=== PATIENT | female | born 1985 | race Caucasian/White ===

== ENCOUNTER 2017-04-26 10:22 | Outpatient (CLI) | payer OTHER ==
--- NOTE | 2017-04-26 13:01 | ULT ---
PELVIC OB ULTRASOUND: COMPARISON: None. HISTORY: female. Unsure of dates of last menstrual period. TECHNIQUE: Multiplanar, purvis scale, and color Doppler images were obtained in a transabdominal and transvaginal pelvic ultrasound. Spectral analysis of the Doppler waveforms of the ovaries were performed. FINDINGS: There is a single live intrauterine with heart rate of 155 b.p.m. There is a normal-appea ring yolk sac and a pole within the gestational sac. [place]-rump length of the pole is 2 .32 cm which estimated gestational age at 9 weeks 0 days. No free fluid is seen in the pelvis. Both ovaries are normal in size and appearance and demonstrate normal internal flow. IMPRESSION: Single live intrauterine with estimated age of 9 weeks 0 days. POS: JACY
== END 2017-04-26 10:23 | disposition home or self-care (01) ==
LOC: ULT 10:22
PROVIDERS: ATTEND Family Medicine
DX: Z34.91 Encounter for supervision of normal pregnancy, unspecified, first trimester (principal); Z3A.09 9 weeks gestation of pregnancy
CPT/HCPCS: 76856

== ENCOUNTER 2017-07-12 12:26 | Outpatient (CLI) | payer OTHER ==
--- NOTE | 2017-07-12 15:06 | ULT ---
OB ULTRASOUND: Date: 07/12/17 COMPARISON: None. HISTORY: female. Evaluate size, dates, and anatomy. TECHNIQUE: Multiplanar Dickens scale and color Doppler images were obtained in a ultrasound. FINDINGS: A single live intrauterine is seen with heart rate of 149 beats/minute. A survey was performed, which was unremarkable. The heart, intracranial structures, heart, stomach, kidneys, umbil ical cord, umbilical cord insertion, face, spine, and extremities were normal. Estimated weight is 349 gm. Average age of the fetus based off today's examination is 30 weeks/3 days The following measurements were taken and dates based off these measurements are as follows: BPD: 4.87 cm, 20 weeks/5 days HC: 18.48 cm, 20 weeks/6 days AC: 15.33 cm, 20 weeks/4 days FL: 3.22 cm, 20 weeks/0 days The placenta is anterior in location without evidence of placenta previa. Amniotic fluid volume is dior bjectively within normal limits. The cervix is normal in length. IMPRESSION: Single live intrauterine with estimated age of 20 weeks/3 days. POS: JACY
== END 2017-07-12 12:27 | disposition home or self-care (01) ==
LOC: ULT 12:26
PROVIDERS: ATTEND Family Medicine
DX: Z33.1 Pregnant state, incidental (principal)
CPT/HCPCS: 76805

== ENCOUNTER 2017-11-19 18:48 | Day surgery (SDC) | payer OTHER ==
[2017-11-19] MEDS ORDERED: Acetaminophen 500 MG TAB PO SCH (19:30)
[2017-11-19 19:46] VITALS: BP 107/61; TEMP 98.4; BMI 35.4
== END 2017-11-19 20:07 | disposition home or self-care (01) ==
LOC: L&D/OP 18:48
PROVIDERS: ATTEND Family Medicine
DX: O47.1 False labor at or after 37 completed weeks of gestation (principal); O24.410 Gestational diabetes mellitus in pregnancy, diet controlled; Z3A.38 38 weeks gestation of pregnancy; Z79.899 Other long term (current) drug therapy
CPT/HCPCS: 99283

== ENCOUNTER 2017-11-24 23:12 | Day surgery (SDC) | payer OTHER ==
[2017-11-24 23:46] VITALS: BMI 34.3
--- NOTE | 2017-11-25 02:53 | SS ---
OB TRIAGE NOTE DATE OF EVALUATION: 11/25/2017 REGULAR PHYSICIAN: Malini Celaya M.D. EVALUATING PHYSICIAN: Robson Kerr M.D. CHIEF COMPLAINT: Contractions. HISTORY OF PRESENT ILLNESS: Ms. Cortez is a 32-year-old G3, P2-0-0-2 with an estimated date of confinement of 11/29/2017 who presents complaining of regular uterine contractions since ear lier this evening. She denies ruptured membranes or vaginal bleeding. Her care has been wi th Dr. Malini Celaya and has been complicated by gestational diabetes for which she has been controlled with diet. PAST OBSTETRICAL HISTORY: Includes 2 vaginal deliveries reportedly uncomplicated. PAST MEDICAL HISTORY: None. CURRENT MEDICATIONS: vitamins. ALLERGIES: No known allergies. PAST SURGICAL HISTORY: Cholecystectomy. SOCIAL HISTORY: Denies tobacco, alcohol, or drug use. REVIEW OF SYSTEMS: Denies nausea, vomiting, fever, chills, vaginal bleeding or ruptured membranes. PHYSICAL EXAMINATION: VITAL SIGNS: Stable. She is afebrile. ABDOMEN: Soft, nontender and gravid. EXTREMITIES: On pelvic examination, her cervix is 2 cm dilated, 50% effaced with the vertex presenti ng. This appears to be similar to her exam when she was seen by Dr. Celaya earlier this week. heart tones are stable, good beat to beat variability is seen. Uterine contractions are seen every 5-7 minutes. The patient was orally hydrated and a repeat cervical exam was repeated after an hour. No cervical c hange was noted. ASSESSMENT: 1. A 39-week intrauterine . 2. No evidence of active labor at this time. PLAN: The patient will be discharged home to rest and hydrate. She will return if she experiences m ore frequent contractions, vaginal bleeding, or rupture of membranes. She voices understanding of he r discharge instructions.
== END 2017-11-25 01:35 | disposition home or self-care (01) ==
LOC: L&D/OP 23:12
PROVIDERS: ATTEND Family Medicine
DX: O47.1 False labor at or after 37 completed weeks of gestation (principal); Z3A.39 39 weeks gestation of pregnancy; Z79.899 Other long term (current) drug therapy; Z98.890 Other specified postprocedural states
CPT/HCPCS: 99282